=== PATIENT | male | born 1995 | race African-American/Black ===

== ENCOUNTER 2017-11-13 04:35 | Emergency (ER) | payer OTHER ==
[~2017-11-13] VITALS: Ht 177.8 cm; Wt 59.0 kg
--- NOTE | 2017-11-13 04:35 | NUR ---
PT BB RA WITH [employer] C/O SUICIDAL IDEATION WITH PLAN TO RUN INTO TRAFFIC. VSS NAD A/OX4 ABLE TO MAKE NEEDS KNOWN. WILL CONTINUE TO MONITOR FOR ANY CHANGES DURING THE SHIFT.
--- NOTE | 2017-11-13 04:36 | NUR ---
ER MD LOU AT BEDSIDE FOR EVAL
--- NOTE | 2017-11-13 04:43 | NUR ---
[employer] AT BEDSIDE
--- NOTE | 2017-11-13 04:57 | NUR ---
EDUCATION OFFICER AT BEDSIDE FOR BLOOD DRAW
[2017-11-13 05:21] LABS: HEMATOCRIT 40 % (39-51); HEMOGLOBIN 13.6 g/dL (13.5-17.5); LYMPHOCYTES # (AUTO) 2.1 /CMM (0.8-4.8); LYMPHOCYTES % (AUTO) 48.8 % (20.0-44.0); MEAN CORPUSCULAR HEMOGLOBIN 32 PG (26.0-33.0); MEAN CORPUSCULAR HGB CONC 34 g/dl (31.0-36.0); MEAN CORPUSCULAR VOLUME 94 fL (80-96); MONOCYTES # (AUTO) 0.4 /CMM (0.1-1.30); MONOCYTES % (AUTO) 8.4 % (2.0-12.0); NEUTROPHILS # (AUTO) 1.6 /CMM (1.8-8.9); NEUTROPHILS % (AUTO) 38.8 % (43.0-81.0); PLATELET COUNT (AUTO) 198 /CMM (150-450); RDW COEFFICIENT OF VARIATION 14.6 (11.5-15.0); RED BLOOD CELL COUNT(AUTO) 4.29 MIL/uL (4.5-6.0); WHITE BLOOD COUNT (AUTO) 4.2 K/uL (4.3-11.0)
[2017-11-13 05:40] LABS: CALCIUM, SERUM 9.2 mg/dL (8.5-10.1); CARBON DIOXIDE 30 mmol/L (21-32); CHLORIDE 105 mmol/L (98-107); CREATININE 1.3 mg/dL (0.6-1.3); GLUCOSE 89 mg/dL (74-106); POTASSIUM 3.9 mmol/L (3.5-5.1); SODIUM SERUM 141 mmol/L (136-145); UREA NITROGEN, BLOOD 13 mg/dL (7-18)
[2017-11-13 05:48] LABS: ALANINE AMINOTRANSFERASE 21 U/L (12-78); ALBUMIN 3.7 g/dL (3.4-5.0); ALCOHOL, BLOOD < 3 mg/dL (0-0); ALKALINE PHOSPHATASE 59 U/L (46-116); ASPARTATE AMINOTRANSFERASE 18 U/L (15-37); BILIRUBIN,DIRECT 0.1 mg/dL (0.0-0.2); BILIRUBIN,TOTAL 0.4 mg/dL (0.2-1.0); SALICYLATE 3.1 mg/dL (2.8-20.0)
[2017-11-13 05:53] LABS: ACETAMINOPHEN 0 ug/ml (10-30)
--- NOTE | 2017-11-13 05:57 | NUR ---
PT RESTING COMFORTABLY IN BED. ALL NEEDS MET. VSS
--- NOTE | 2017-11-13 06:55 | NUR ---
CALLED [facility]. ART WILL EVAL PATIENT AT 8AM
--- NOTE | 2017-11-13 07:05 | NUR ---
RECEIVED REPORT FOR JOHNIE
--- NOTE | 2017-11-13 08:25 | NUR ---
DRAFTING CLERK, ART AT BEDSIDE FOR EVAL.
--- NOTE | 2017-11-13 12:24 | NUR ---
CALLED [facility] BACK, LEFT MESSAGE FOR CARLOS TO CALL BACK.
--- NOTE | 2017-11-13 13:16 | NUR ---
REPORT GIVEN TO SARI TALAMANTES AT [facility] FOR [facility] UPON TRANSFER.
--- NOTE | 2017-11-13 13:49 | NUR ---
CALLED [facility] FOR TRANSPORT ETA OF 1500 WAS GIVEN. TRIP#[id number]
--- NOTE | 2017-11-13 14:58 | NUR ---
REPORT GIVEN TO SANTOS YE FOR TRANSPORT TO [facility]
[2017-11-13 15:00] VITALS: BP 109/61
== END 2017-11-13 15:01 ==
LOC: ER 04:37
DX: R45.851 Suicidal ideations (principal); F32.9 Major depressive disorder, single episode, unspecified
CPT/HCPCS: 36415; 80048-TC; 80076-TC; 80305; 85025-TC; A4606; G0480; Z7610